=== PATIENT | female | born 1970 | race African-American/Black ===

== ENCOUNTER 2018-12-28 14:43 | Emergency (ER) | payer BC ==
[~2018-12-28] VITALS: Ht 172.7 cm; Wt 74.8 kg
[2018-12-28 15:13] LABS: URINE BILIRUBIN NEGATIVE (Negative); URINE BLOOD NEGATIVE (Negative); URINE CLARITY SL CLOUDY; URINE COLOR YELLOW; URINE GLUCOSE-RANDOM* NEGATIVE (Negative); URINE KETONES NEGATIVE (Negative); URINE LEUKOCYTES-REFLEX NEGATIVE (Negative); URINE NITRITE-REFLEX NEGATIVE (Negative); URINE PROTEIN (DIPSTICK) 1+ (Negative)
[2018-12-28 15:21] LABS: HEMATOCRIT 39.4 % (37.0-47.0); HEMOGLOBIN 12.5 gm/dL (12.0-15.0); WBC 8.7 thou/uL (4.0-11.0)
[2018-12-28 15:23] LABS: MCH 25.5 pg (26.0-34.0); MCHC 31.8 g/dL (28.0-37.0); MCV 80.2 fL (80.0-100.0); PLATELET COUNT 228 thou/uL (150-400); RBC 4.91 mil/uL (4.20-5.00); RDW 14.5 % (10.5-14.5)
[2018-12-28 15:24] LABS: CASTS None Seen /LPF (None Seen); CRYSTALS None Seen /LPF (None Seen); SQUAMOUS 4-10 Moderate /LPF (0-3); URINE RBC None Seen /HPF (0-2); URINE WBC-REFLEX None Seen /HPF (0-5)
[2018-12-28 15:25] LABS: ANION GAP 13 mmol/L (7-16); BUN 6 mg/dL (7-18); CALCIUM 9.4 mg/dL (8.5-10.1); CHLORIDE 97 mmol/L (98-107); CO2 27 mmol/L (21-32); CREATININE 0.6 mg/dL (0.6-1.0); GLUCOSE 121 mg/dL (74-106); POTASSIUM 3.8 mmol/L (3.5-5.1); SODIUM 137 mmol/L (136-145)
[2018-12-28 15:25] LABS: BACTERIA-REFLEX 1-9 Few /HPF (None Seen)
[2018-12-28 15:35] LABS: ALBUMIN 4.6 g/dL (3.4-5.0); LIPASE 128 U/L (73-393); SGOT 32 U/L (15-37); SGPT 26 U/L (30-65); TOTAL BILIRUBIN 0.4 mg/dL (<0.1-1.0); TOTAL PROTEIN 8.9 g/dL (6.4-8.2); TROPONIN-I <0.06 ng/mL (<0.06)
[2018-12-28 16:00] LABS: ABSOLUTE NEUTROPHILS 6.4 thou/uL (1.4-8.2); PLATELET ESTIMATE NORMAL
[2018-12-28 16:42] LABS: AMP/METHAMP Negative (Negative); BARBITURATES Negative (Negative); BENZODIAZEPINES Negative (Negative); COCAINE Negative (Negative); METHADONE Negative (Negative); OPIATES POSITIVE (Negative); PCP Negative (Negative)
[2018-12-28] MEDS ORDERED: PRILOSEC OTC20 MG PO (16:45)
[2018-12-28] MEDS ORDERED: ONDANSETRON ODT8 MG PO (16:45)
[2018-12-28] MEDS ORDERED: TRAMADOL 50 MG50 MG PO (16:45)
[2018-12-28 17:24] VITALS: BP 154/97
--- NOTE | 2018-12-28 19:29 | EKG ---
[address] [place] [address] ELECTROCARDIOGRAM REPORT Name: JAVIER ORTIZ [id number] Admission: 12/28/18 Attend Phys: Discharge: 12/28/18 Date of : 74 Report #: [id number] THIS REPORT FOR: //name// [facility] ED Test Date: 2018-12-28 Test Time: 15:07:16 Pat Name: JAVIER ORTIZ Department: Room: Gender: F End Matcher: : 1970 Requested By: Cristian Tucker Order Number: [id number] MD: Alex Sousa Measurements Intervals Cerulean Rate: 100 P: 66 AR: 139 QRS: 64 QRSD: 92 T: 41 QT: 351 QTc: 453 Interpretive Statements Sinus tachycardia Borderline T wave abnormalities No previous ECG available for comparison Electronically Signed On 12-28-2018 19:29:22 [employer] by Alex Sousa [email or web address] <ELECTRONICALLY SIGNED> By: Alex Sousa MD, [facility] 12/28/18 1929 1507 [id number] Alex Sousa MD, FACC /EPI
== END 2018-12-28 17:00 | disposition home or self-care (01) ==
LOC: ER 14:43
PROVIDERS: Emergency Medicine
DX: K29.20 Alcoholic gastritis without bleeding (principal); R11.2 Nausea with vomiting, unspecified; R10.33 Periumbilical pain; I10 Essential (primary) hypertension; F10.10 Alcohol abuse, uncomplicated; F17.210 Nicotine dependence, cigarettes, uncomplicated; Y90.5 Blood alcohol level of 100-119 mg/100 ml